=== PATIENT | female | born 1970 | race African-American/Black ===

== ENCOUNTER → 2021-07-21 | Outpatient (CLI) | payer OTHER ==
[~2021-07-21] MED LIST: ADULT LOW DOSE81 MG PO; ATENOLOL 100MG100 M2 PO; COUMADIN 10MG T10 M1 PO; GLUCOPHAGE1000 MG PO; HYDROCHLOROTH12.5 MG PO; LOVENOX SQ; MESTINON60 MG PO; METHOTREXATE 22.5 MG PO; NAPROSYN500 MG PO; NORCO 5-325 TA1 EACH PO; PROZAC 20 MG20 M1 PO; SIMVASTATIN80 MG PO; VITAMIN D1000 UNI1 PO
== END ==
LOC: CAT 11:27
PROVIDERS: ATTEND Internal Medicine Cardiovascular Disease
DX: Z13.6 Encounter for screening for cardiovascular disorders (principal)

== ENCOUNTER → 2021-08-21 | Outpatient (CLI) | payer BC, OTHER | LOC: SJCVCIMAG 08:18 | PROVIDERS: ATTEND Internal Medicine Cardiovascular Disease | DX: R00.2 Palpitations (principal); E78.5 Hyperlipidemia, unspecified ==